=== PATIENT | male | born 1990 | race Caucasian/White ===

== ENCOUNTER 2018-10-17 16:00 | Emergency (ER) | payer MEDICAID ==
[~2018-10-17] VITALS: Ht 175.3 cm; Wt 83.9 kg
[~2018-10-17 16:00] MED LIST: ATIVAN0.5 MG PO; KEPPRA250 MG; KEPPRA250 MG PO
[2018-10-17 18:29] VITALS: BP 137/82
== END 2018-10-17 18:32 ==
LOC: M.ERS 16:00
DX: S43.085A Other dislocation of left shoulder joint, initial encounter (principal); Z88.8 Allergy status to other drugs, medicaments and biological substances; Z88.6 Allergy status to analgesic agent; X50.1XXA Overexertion from prolonged static or awkward postures, initial encounter; Y92.149 Unspecified place in prison as the place of occurrence of the external cause; Y93.89 Activity, other specified; Y99.8 Other external cause status

== ENCOUNTER 2019-01-31 14:12 | Emergency (ER) | payer MEDICAID ==
[~2019-01-31] VITALS: Ht 182.9 cm; Wt 33.3 kg
[2019-01-31 14:45] LABS: ABSOLUTE BASOPHILS 0.1 thou/uL (0.0-0.2); ABSOLUTE EOSINOPHILS 0.2 thou/uL (0.0-0.7); ABSOLUTE LYMPHOCYTES 1.2 thou/uL (0.8-5.3); ABSOLUTE MONOCYTES 0.6 thou/uL (0.0-1.2); ABSOLUTE NEUTROPHILS 6.2 thou/uL (1.6-8.1); BASOPHILS 0.7 %; EOSINOPHILS 2.5 %; HEMATOCRIT 44.3 % (42.0-52.0); HEMOGLOBIN 15.4 gm/dL (14.0-18.0); MCH 28.5 pg (26.0-34.0); MCHC 34.6 g/dL (28.0-37.0); MCV 82.3 fL (80.0-100.0); MONOCYTES 6.9 %; MPV 7.7 fl. (7.2-11.1); NUCLEATED RBCS 0 /100WBC; PLATELET COUNT* 351 thou/uL (150-400); POLYS 74.9 %; RBC 5.38 mil/uL (4.50-6.00); WBC 8.2 thou/uL (4.0-11.0)
[2019-01-31 14:50] LABS: CALCIUM 8.6 mg/dL (8.5-10.1); CREATININE 0.9 mg/dL (0.6-1.3)
[2019-01-31 15:01] LABS: ALBUMIN 3.2 g/dL (3.4-5.0); TOTAL BILIRUBIN 0.3 mg/dL (<0.1-1.0); TOTAL PROTEIN 6.9 g/dL (6.4-8.2)
[2019-01-31 15:42] VITALS: BP 127/79
--- NOTE | 2019-02-06 10:04 | EKG ---
[place] [address] ELECTROCARDIOGRAM REPORT Name: PENNY ESQUIVEL [id number] Admission: 01/31/19 Attend Phys: Discharge: 01/31/19 Date of : 89 Report #: [id number] THIS REPORT FOR: //name// [facility] ED Test Date: 2019-01-31 Test Time: 14:25:28 Pat Name: PENNY ESQUIVEL Department: Room: Gender: M Lacing Cutter: DANIEL URBANO : 1990 Requested By: Redd Hernandez Order Number: [id number] MD: Thomas Mcnamara Measurements Intervals [place] Rate: 88 P: 65 AK: 122 QRS: 91 QRSD: 100 T: 61 QT: 340 QTc: 412 Interpretive Statements Sinus rhythm Borderline right axis deviation ST elev, probable normal early repol pattern Baseline wander in lead(s) I,III,aVL,V3 Compared to ECG 12/11/2011 12:37:02 ST (T wave) deviation now present Sinus arrhythmia no longer present Electronically Signed On 02-06-2019 10:04:32 [employer] by Thomas Mcnamara [email or web address] <ELECTRONICALLY SIGNED> By: Thomas Mcnamara MD, FACC 02/06/19 1004 1425 1425 Thomas Mcnamara MD, FAC /EPI
== END 2019-01-31 15:42 | disposition home or self-care (01) ==
LOC: M.ERS 14:12
PROVIDERS: Family Medicine
DX: R56.9 Unspecified convulsions (principal); Z88.6 Allergy status to analgesic agent; Z88.8 Allergy status to other drugs, medicaments and biological substances; Z86.19 Personal history of other infectious and parasitic diseases